=== PATIENT | female | born 2000 | race Caucasian/White ===

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

== ENCOUNTER 2019-04-23 19:28 | Emergency (ER) | payer MEDICAID, OTHER ==
[~2019-04-23] VITALS: Ht 162.6 cm; Wt 61.2 kg
[~2019-04-23 19:28] MED LIST changes: +CIPR-225 PO; +HYOS0.1283 SL; +PHEN-640 PO
[2019-04-23 19:36] VITALS: BP 143/84
[2019-04-23] MEDS ORDERED: RX-TRIMETH/SULFA. 160-800 MG (BACTRIM DS) TAB PPK#2 PO STA (20:17)
[2019-04-23] MEDS ORDERED: TETANUS,DIPTH,PERTUSS P/F (BOOSTRIX) 0.5 ML VIAL IM ONE ×2 (20:19→20:30)
[2019-04-23] MEDS ORDERED: SULF-222 PO (20:20)
--- NOTE | 2019-04-23 20:21 | ED Integumentary General ---
General Chief Complaint: Bite-Animal/Human/Insect Stated Complaint: BITE ON HIP Nursing Triage Note: Patient reports 'bite' on R hip. states she noticed it yesterday and it has gotten bigger Source: patient Exam Limitations: no limitations History of Present Illness Date Seen by Provider: Apr 23, 2019 Time Seen by Provider: 20:06 Initial Comments 19-year-old female patient presents to the emergency department complains of a insect bite to the right hip. Patient states [place], but does not recall anything biting or stinging her. Patient reportedly noticed the bite joie yesterday, but states the redness has gotten bigger today. Patient states she was instructed by her mother to come to the emergency department for evaluation. Timing/Duration: yesterday, getting worse Location: extremities (right hip) Possible Cause: insect bite (possible insect bite) Modifying Factors: worse with other (denies dlkr-fhk-wurhigu medications or home remedies.) Allergies and Home Medications Allergies Coded Allergies: amoxicillin (Verified Allergy, Intermediate, RASH, 03/03/17) Rash and Dyspnea clavulanic acid (Verified Allergy, Intermediate, RASH, 03/03/17) Rash and Dyspnea Home Medications Amoxicillin/Potassium Clav 1 Each Tablet, 1 EACH PO BID, (Reported) Ciprofloxacin HCl 500 Mg Tablet, 500 MG PO BID Prescribed by: ERASMO MONROE on 04/02/17400 Hyoscyamine Sulfate 0.125 Mg Tab.subl, 0.125 MG SL Q4H PRN for CRAMPS Prescribed by: ERASMO MONROE on 04/02/17400 Phenazopyridine HCl 200 Mg Tablet, 1 TAB PO TID PRN for PAIN-MILD TO MODERATE Prescribed by: ERASMO MONROE on 04/02/17400 Prednisone 20 Mg Tab, 20 MG PO DAILY Prescribed by: ERASMO OMNROE on 03/03/17 050 Sulfamethoxazole/Trimethoprim 1 Each Tablet, 1 EACH PO BID Prescribed by: ARACELI VOGEL on 04/23/192019 Patient Home Medication List Home Medication List Reviewed: Yes Review of Systems Review of Systems Constitutional: No chills, No fever, No malaise EENTM: no symptoms reported Respiratory: no symptoms reported Cardiovascular: no symptoms reported Gastrointestinal: no symptoms reported Musculoskeletal: no symptoms reported Skin: see HPI Psychiatric/Neurological: No Symptoms Reported All Other Systems Reviewed Negative Unless Noted: Yes (Negative excepted noted.) Past Lraewne-Sjfozb-Xkofgt Hx Past Med/Social Hx: Reviewed Nursing Past Med/Soc Hx Patient Social History Alcohol Use: Denies Use Recreational Drug Use: No Type Used: Electronic/Vapor 2nd Hand Smoke Exposure: No Recent Foreign Travel: No Contact w/Someone Who Travel: No Recent Infectious Disease Expo: No Recent Hopitalizations: No Physical Abuse: No Sexual Abuse: No Mistreated: No Fear: No Immunizations Up To Date Tetanus Booster (TDap): More than 5yrs Seasonal Allergies Seasonal Allergies: No Past Medical History Surgeries: Yes Adenoidectomy, Tonsillectomy Respiratory: No Cardiac: No Neurological: No Genitourinary: No Gastrointestinal: No Musculoskeletal: No Endocrine: No HEENT: No Cancer: No Psychosocial: Yes Depression Integumentary: No Blood Disorders: No Family Medical History Reviewed Nursing Family Hx No Pertinent Family Hx Physical Exam Vital Signs Vital Signs - First Documented 04/23/19 19:36 Temp 98.5 Pulse 99 Resp 18 B/P (MAP) 143/84 (103) Pulse Ox 98 Capillary Refill : Less Than 3 Seconds General Appearance: WD/WN, no apparent distress Cardiovascular: normal peripheral pulses, regular rate, rhythm, no edema, no gallop, no murmur Respiratory: lungs clear, normal breath sounds, no respiratory distress, no accessory muscle use Extremities: normal range of motion, non-tender, no pedal edema, normal capillary refill, other (3x4 cm area of erythema with a centrual puncture site and warmth noted to the rt hip. nontender. no drainage noted.) Skin: normal color, warm/dry, other (3x4 cm area of erythema with a centrual puncture site and warmth noted to the rt hip. nontender. no drainage noted.) Skin Problem Location: lower extremities (right hip) Skin Problem Character: erythema, warm, other (3x4 cm area of erythema with a centrual puncture site and warmth noted to the rt hip. nontender. no drainage noted.) Progress/Results/Core Measures Results/Orders My Orders Orders - ARACELI VOGEL Rx-Trimeth/Sulfameth Ds Tab (Rx-Bactrim/ (04/23/19 20:17) Tetanus/Diphtheria Inj (Adult) (Tenivac (04/23/19 20:30) Dipht,Pertuss(Acell),Tet Adult (Boostrix (04/23/19 20:30) Dipht,Pertuss(Acell),Tet Adult (Boostrix (04/23/19 20:19) Medications Given in ED Current Medications Medications Dose Ordered Sig/Marilou Route Start Time Stop Time Status Last Admin Dose Admin Diphtheria/ Tetanus/Acell Pertussis 0.5 ml ONCE ONCE IM 04/23/19 20:30 04/23/19 20:30 DC 04/23/19 20:28 0.5 ML Vital Signs/I&O 04/23/19 19:36 Temp 98.5 Pulse 99 Resp 18 B/P (MAP) 143/84 (103) Pulse Ox 98 Blood Pressure Mean: 103 Departure Communication (Admissions) Patient seen and evaluated. Patient given take-home pack of Bactrim DS and also given a tetanus booster in the emergency department. Plan for discharge to home. Impression Primary Impression: Cellulitis of hip, right Additional Impression: Insect bite Qualified Codes: S70.261A - Insect bite (nonvenomous), right hip, initial encounter; W57.XXXA - Bitten or stung by nonvenomous insect and other nonvenomous arthropods, initial encounter Disposition: HOME, SELF-CARE Condition: Improved Departure-Patient Inst. Decision time for Depature: 20:19 Referrals: [facility] (PCP/Family) Primary Care Physician Patient Instructions: Cellulitis (Skin Infection), Adult (DC), Insect Bites and Stings (DC) Add. Discharge Instructions: All discharge instructions reviewed with patient and/or family. Voiced understanding. Medications as instructed. Tylenol and ibuprofen ewsu-zxa-[id number] as directed for pain. Pkwk-iay-lohftot Claritin or Garima as needed for itching or swelling. Follow-up with your primary care provider if needed. Return to the emergency department for worsened symptoms or any other concerns. Scripts Sulfamethoxazole/Trimethoprim (Sulfamethoxazole-Tmp Ds Tablet) 1 Each Tablet 1 EACH PO BID, #14 TAB 0 Refills Prov: ARACELI VOGEL 04/23/19 ARACELI VOGEL Apr 23, 2019 20:21
[2019-04-23] MEDS ORDERED: TETANUS & DIPHTHERIA TOX,ADULT 0.5 ML (TENIVAC) IM ONE (20:30)
== END 2019-04-23 20:30 | disposition home or self-care (01) ==
LOC: EDUNIT# 19:28 → ER 19:30
DX: S70.261A Insect bite (nonvenomous), right hip, initial encounter (principal); L03.115 Cellulitis of right lower limb; F32.9 Major depressive disorder, single episode, unspecified; Z90.89 Acquired absence of other organs; Z88.1 Allergy status to other antibiotic agents; Z88.8 Allergy status to other drugs, medicaments and biological substances; W57.XXXA Bitten or stung by nonvenomous insect and other nonvenomous arthropods, initial encounter
CPT/HCPCS: 90715; 99283

== ENCOUNTER 2020-01-04 18:14 | Emergency (ER) | payer MEDICAID, OTHER ==
[~2020-01-04] VITALS: Ht 160 cm; Wt 253.0 kg
[~2020-01-04 18:14] MED LIST changes: +SULF-222 PO
[2020-01-04] MEDS ORDERED: CYCLOBENZAPRINE 10 MG (FLEXERIL) TAB PO STA (20:46)
[2020-01-04] MEDS ORDERED: KETOROLAC 60 MG/2 ML VIAL IM STA (20:46)
[2020-01-04] MEDS ORDERED: CYCL10TA9 PO (20:49)
--- NOTE | 2020-01-04 20:50 | ED Neck-Back Pain/Injury ---
General Chief Complaint: General Problems/Pain Stated Complaint: RIB PAIN Nursing Triage Note: Pt amb to triage with c/o R rib discomfort, R shoulder discomfort, nausea, vomiting, fever, chills, et night sweats. Pt reports onset of symptoms to be approx x2 days ago. Pt reports increase in rib et shoulder pain when taking a deep breath. Pt denies injury, CP, or SOA. A&OX4. Nursing Sepsis Screen: No Definite Risk History of Present Illness Date Seen by Provider: Jan 04, 2020 Time Seen by Provider: 20:15 Initial Comments 19-year-old female presents for right rib, neck and shoulder pain. She states that she had an upper respiratory infection approximately 2 weeks ago with coughing consistently. She denies any fevers at this time but does report sweating at night. She's had no weight gain or weight loss. She does not have a primary care provider. She did obtain a flu vaccine this year. She denies an injury to her neck, ribs or shoulder. Location: C-Spine, Other (Right ribs) Timing/Duration: 1 Week, Intermittent Severity: Mild Pain/Injury Location: Neck Associated Symptoms: muscle spasms Allergies and Home Medications Allergies Coded Allergies: amoxicillin (Verified Allergy, Intermediate, RASH, 03/03/17) Rash and Dyspnea clavulanic acid (Verified Allergy, Intermediate, RASH, 03/03/17) Rash and Dyspnea Home Medications Amoxicillin/Potassium Clav 1 Each Tablet, 1 EACH PO BID, (Reported) Ciprofloxacin HCl 500 Mg Tablet, 500 MG PO BID Prescribed by: ERASMO MONROE on 04/02/17400 Cyclobenzaprine HCl 10 Mg Tablet, 10 MG PO Q8H PRN for SPASMS Prescribed by: WESTON CHOWDHURY on 01/04/202048 Hyoscyamine Sulfate 0.125 Mg Tab.subl, 0.125 MG SL Q4H PRN for CRAMPS Prescribed by: ERASMO MONROE on 04/02/17400 Phenazopyridine HCl 200 Mg Tablet, 1 TAB PO TID PRN for PAIN-MILD TO MODERATE Prescribed by: ERASMO MONROE on 04/02/17 040 Prednisone 20 Mg Tab, 20 MG PO DAILY Prescribed by: ERASMO MONROE on 03/03/17 0501 Sulfamethoxazole/Trimethoprim 1 Each Tablet, 1 EACH PO BID Prescribed by: ARACELI VOGEL on 04/23/192019 Patient Home Medication List Home Medication List Reviewed: Yes Review of Systems Constitutional: no symptoms reported, see HPI Musculoskeletal: see HPI, joint pain (right shoulder), muscle pain (right trapezius), neck pain All Other Systems Reviewed Negative Unless Noted: Yes Past Tmgcqyg-Aqaiup-Ibdvzz Hx Past Med/Social Hx: Reviewed Nursing Past Med/Soc Hx Patient Social History Alcohol Use: Denies Use Recreational Drug Use: No Smoking Status: Current Everyday Smoker Type Used: Cigarettes, Electronic/Vapor 2nd Hand Smoke Exposure: No Recent Foreign Travel: No Contact w/Someone Who Travel: No Recent Infectious Disease Expo: No Recent Hopitalizations: No Physical Abuse: No Sexual Abuse: No Immunizations Up To Date Tetanus Booster (TDap): More than 5yrs Seasonal Allergies Seasonal Allergies: No Past Medical History Surgeries: Yes Adenoidectomy, Tonsillectomy Respiratory: No Cardiac: No Neurological: No Genitourinary: No Gastrointestinal: No Musculoskeletal: No Endocrine: No HEENT: No Cancer: No Psychosocial: Yes Depression Integumentary: No Blood Disorders: No Family Medical History No Pertinent Family Hx Physical Exam Vital Signs Vital Signs - First Documented 01/04/20 18:33 Temp 36.9 Pulse 85 Resp 18 B/P (MAP) 118/77 (91) Pulse Ox 99 O2 Delivery Room Air Capillary Refill : Less Than 3 Seconds Height, Weight, BMI Height: 5'4.00" Weight: 135lbs. oz. 61.225868pw; 98.00 BMI Method:Stated General Appearance: No Apparent Distress, WD/WN HEENT: PERRL/EOMI, TMs Normal, Normal ENT Inspection, Pharynx Normal Neck: Full Range of Motion, Normal Inspection, Tender Lateral (right trapezius) Cardiovascular: Regular Rate, Rhythm, No Edema, No Murmur, Normal Peripheral Pulses Respiratory: Lungs Clear, Normal Breath Sounds, Other (tenderness along the lateral lower ribs, increased pain with coughing or deep inspiration) Gastrointestinal: Normal Bowel Sounds, Non Tender, Soft Extremity: Normal Capillary Refill, Normal Inspection, Normal Range of Motion Neurologic/Psychiatric: Alert, Oriented x3, No Motor/Sensory Deficits, Normal Mood/Affect Skin: Normal Color, Warm/Dry Progress/Results/Core Measures Results/Orders Micro Results Microbiology 01/04/20 Influenza Types A,B Antigen (CHRISSIE) - Final, Complete My Orders Orders - TRENTONWESTON GARSIA Influenza A And B Antigens (01/04/20 19:52) Ketorolac Injection (Toradol Injection) (01/04/20 20:46) Cyclobenzaprine Tablet (Flexeril Tablet) (01/04/20 20:46) Vital Signs/I&O 01/04/20 01/04/20 18:33 21:01 Temp 36.9 36.9 Pulse 85 85 Resp 18 18 B/P (MAP) 118/77 (91) 118/77 (91) Pulse Ox 99 99 O2 Delivery Room Air Blood Pressure Mean: 91 Progress Progress Note : Time: 20:15 Progress Note Patient seen and evaluated, will obtain influenza swab and reevaluate. Will give Toradol for pain and Flexeril for muscle spasms. 2100 patient reports some improvement in her symptoms. Discharge instructions and return precautions reviewed with her. Departure Impression Primary Impression: Costochondritis, acute Additional Impression: Trapezius muscle strain Qualified Codes: S46.811A - Strain of other muscles, fascia and tendons at shoulder and upper arm level, right arm, initial encounter Disposition: HOME, SELF-CARE Condition: Improved Departure-Patient Inst. Decision time for Depature: 20:45 Referrals: [facility] ([facility]) Primary Care Physician Patient Instructions: Cervical Muscle Strain (DC), Costochondritis (DC) Add. Discharge Instructions: Use warm, moist compression to right neck and ribs. Take ibuprofen 600 mg alternating with Tylenol 650 mg every 4 hours for pain. Use the Flexeril prescription as directed. Follow-up with a primary care provider if symptoms are not improving or worsen. Return to the emergency department for new, urgent health care needs. All discharge instructions reviewed with patient and/or family. Voiced understanding. Scripts Cyclobenzaprine HCl (Cyclobenzaprine HCl) 10 Mg Tablet 10 MG PO Q8H PRN for SPASMS, #15 TAB 0 Refills Prov: TRENTONWESTON GARSIA 01/04/20 TRENTONWESTON GARSIA Jan 04, 2020 20:49
[2020-01-04 21:01] VITALS: BP 118/77
--- OUTSIDE RECORDS SUMMARY | 2020-01-06 17:38 | XMS REPORT ---
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 Name Role Phone CHAPPAQUA, [facility] Unavailable SUSSY MAYERS Unavailable KEVIN CARMICHAEL, ERASMO Donald Unavailable Unavailable [facility] Unavailable PCP, NONE Unavailable Unavailable KEVIN CARMICHAEL, ERASMO Donald Unavailable Unavailable ERIN GRIFFIN DO Unavailable Unavailable ARACELI CUADRA Unavailable Unavailable Unavailable Unavailable [facility] PCP Allergies Normalized Allergy Reported Date of Reaction(s) Care Provider Facility Allergy Type classification allergen Allergy Onset Drug Allergy Clavulanate Clavulanate 03-03-2017 - [place] [address] (1 source.) [facility] (07418) NEGATED no information clavulanic 03-03-2017 - RASH ERASMO Not Available Drug Allergy acid KEVIN (83006) (1 source.) MD SUTTON (20 Unclassified clavulanic 03-03-2017 - RASH ERASMO Not Available sources.) evie BROWN (01617) Drug Allergy penicillin v penicillin v 06-21-2018 - anaphylaxis [facility] (1 source.) Translations: [address] [facility] [ Penicillin V of [place] Potassium] [place] ([address]) Medications Current Medications Medication Ingredient Drug Dose Dates Status Sig Sig Care Class(es) (Normalized) (Original) Provid er cyclobenzap cyclobenzap Muscle 01-04-20 Active no Cyclobenza pr no rine rine Relaxant 20 information ine Hcl name hydrochlori Active 10 (no de 10 mg ORAL Every phone) oral tablet 8HRS as (1 source.) needed for Spasms January 04, 2020 8:49pm sertraline sertraline Serotonin 50 mg 06-21-20 Active no Zo loft 50 mg no 50 mg oral Translation Reuptake 18 information Orally Onc e name tablet (1 s: [ Zoloft Inhibitor a day 1 (no source.) 50 mg] tablet 24h phone) May, 30 day(s) Active no Sulfamethox Dihydrofola 04-23-20 Active no Sulfametho xa no information azole / te 19 information zole/Trimeth name (1 source.) Trimethopri Reductase oprim Active (no m Inhibitor 1 ORAL Twice phone) Antibacteri A Day 14 April 23, Sulfonamide 2018 8:20pm Antimicrobi al Completed/Discontinued Medications Medication Ingredient Drug Dose Dates Status Sig Sig Care Class(es) (Normalized) (Original) Provid er no Flintstones no no no Flintstones no information Complete information informat information Complete name (1 source.) ion Active (no phone) no Potassium no 20 mEq 01-25-20 no no no no information Chloride information 19 - informat information inf ormation name (1 source.) 01-25-20 ion (no 19 phone) Problems Active Problems Problem Normalized Date of Normalized Normalized Provider Fac ility Classification Problem(s) Problem Problem Problem Sta tus Onset/Resoluti Duration on Other female Abnormal Chronic Active PAULINA OLIVEIRA Hospit al genital uterine and [facility] of disorders (1 vaginal [place] source.) [facility], [facility] (53362) unspecified Unclassified Cellulitis of no information Active [facility] [address] (2 sources.) right hip [facility] (57609) Other bone Costal Episodic Active [facility] [address] [facility] disease and chondritis [facility] l deformities (37809) (1 source.) Other diseases Disorder of Episodic Active [facility] V ia of kidney and kidney and Radha BROWN ureters (2 ureterMD Hospital - sources.) unspecified [place] ([address]) Unclassified Encounter for Episodic Active SUSSY Commu nity (2 sources.) [place] [address] [facility] Center test, result of [place] unknown [place] ([address]) Translations: [ - Encounter for test, result unknown Z32.00] Anxiety Generalized Chronic Active BOISE Community disorders (6 anxiety [place] [address] [facility] sources.) disorder of [place] Translations: [place] ([address]) [ TOSHA (generalized anxiety disorder), - TOSHA (generalized anxiety disorder) F41.1, - Anxiety state, unspecified F41.1] Other lower Hyperventilati Episodic Active ERASMO Not A vailable respiratory on KEVIN , (97394) disease (6 MD sources.) Unclassified Insect bite no information Active [facility] [address] (2 sources.) [facility] (11059) Mood disorders Mood disorder Chronic Active SUSSY Com munity (7 sources.) Translations: [address] [ Unspecified of [place] mood [place] ([address]) [affective] disorder, - Unspecified mood [affective] disorder F39, MAJOR DEPRESSIVE DISORDER, SINGLE EPISOD] Other Pruritus, Episodic Active ERASMO Not Availabl e inflammatory unspecified BRUJESSICA , (59060) condition of MD skin (11 sources.) Menstrual Unspecified Chronic Active PAULINA OLIVEIRA Hospit al disorders (1 disorders of [facility] of source.) menstruation [place] and [facility] (61598) abnormal bleeding from female genital tract Other injuries Unspecified Episodic Active ERASMO Not A vailable and conditions injury of left KEVIN , (66433) due to ankle, initial MD external encounter causes (9 sources.) Past or Other Problems Problem Normalized Date of Normalized Normalized Provider Fac ility Classification Problem(s) Problem Problem Problem Sta tus Onset/Resoluti Duration on Superficial Abrasion, Episodic Completed ERASMO Not Availa ble injury; right knee, BRUJESSICA , (66570) contusion (23 initial MD sources.) encounter Translations: [ ABRASION, LEFT FOOT, INITIAL ENCOUNTER, ABRASION, LEFT FOOT, INITIAL ENCOUNTER, INSECT BITE (NONVENOMOUS), RIGHT HIP, IN] Residual Acquired Episodic Completed ARACELI [facility] Via codes; absence of TEETEE VOGEL unclassified other organs Hospital - (4 sources.) [place] ([address]) External cause Activity, no information no information ERASMO Not Available codes: running KEVIN , (14836) Unspecified Translations: (17 sources.) [ OTHER EXTERNAL CAUSE STATUS, OTHER EXTERNAL CAUSE STATUS] Adverse Adverse effect no information no information ERASMO Not Available effects of of KEVIN , (44359) medical drugs MD marciano (6 sources.) initial encounter Allergic Allergy status Episodic Completed ARACELI [facility] Via reactions (8 to other TEETEE VOGEL sources.) antibiotic Hospital - agents status [place] Translations: (98405) [ ALLERGY STATUS TO OTH DRUG/MEDS/BIOL SUB] External cause Bitten or no information no information ARACELI [facility] Via codes: stung by TEETEE VOGEL Natural/enviro nonvenomous Hospital - [facility] (3 insect and [place] sources.) other (54697) nonvenomous arthropods, initial encounter External cause Bitten or Episodic Completed ARACELI [facility] Via codes: stung by TEETEE VOGEL Natural/enviro nonvenomous [facility] (1 insect and [place] source.) other (84752) nonvenomous arthropods, initial encounter Skin and Cellulitis of Episodic Completed ARACELI [facility] Via subcutaneous right lower TEETEE VOGEL tissue limb Hospital - infections (4 [place] sources.) (67446) External cause College as the no information no information CYRUS FITZPATRICK Not Available codes: Place place of [facility] , ([address]41) of occurrence occurrence of MD (9 sources.) the external cause External cause Fall on same no information no information JOSHU A Not Available codes: Fall (9 level from [facility] , (28642) sources.) slipping, MD tripping and stumbling without subsequent striking against object, initial encounter Mood disorders Major no information no information ARACELI [facility] Via (3 sources.) depressive TEETEE VOGEL disorder, Hospital - single [place] episode, (72488) unspecified Procedures Procedure Normalized Procedure Procedure Result Performer Facility Date 06-02-2018 Psychiatric diagnostic no information no name (no p booker) [facility] (56599) Immunizations Normalized Immunization Date Notes Care Provider Facili ty Immunization tetanus toxoid, 04-23-2019 no information no name [facility] toxoid, and (31249) acellular pertussis vaccine, adsorbed tetanus toxoid, 04-23-2019 no information [facility] [address] [address] [facility] diphtheria [facility] toxoid, and (92855) acellular pertussis vaccine, adsorbed Results Test Name Value Interpretation Reference Range Date Time Fa cility (Normalized) (Normalized) (Medline Reference) No panel information on 2019-11-30 Control no information (no code) [facility] (68450) Exp date 2022-06-04 (no code) [facility] (37833) Lot # [id number] (no code) [facility] (61959) No panel information on 2019-01-24 Albumin BCG dye 4.4 (no code) 01-24-2019 Hospital [Mass/Vol] 23: [facility] (95148) ALP [Catalytic 60 U/L (no code) 44 - 147 U/L 01-24-2019 Hosp ital activity/Vol] 23:0 [facility] (64709) ALT [Catalytic 15 U/L (no code) 4 - 40 U/L 01-24-2019 Hospit al activity/Vol] 23:0 [facility] (52978) Anion gap 13 mmol/L (no code) 3 - 11 mmol/L 01-24-2019 Hospital [Moles/Vol] 23:040 [facility] (60720) AST [Catalytic 17 U/L (no code) 10 - 34 U/L 01-24-2019 Hospi vahid activity/Vol] 23:11-0400 [facility] (42767) Basophils (Bld) 0.0 10*3/uL (no code) 0 - 0.3 10*3/uL 01-24-2019 Hospital [#/Vol] 23:11040 [facility] (69778) Basophils/100 0.40 % (no code) 0.5 - 1 % 01-24-2019 Hospital WBC (Bld) 23: [facility] (58353) Beta HCG no information (no code) 01-24-2019 Hospital ( test) 23: [facility] (10785) Bilirubin 0.5 mg/dL (no code) 0.1 - 1.2 mg/dL 01-24-2019 Hospit al [Mass/Vol] 23: [facility] (05111) Calcium 9.6 mg/dL (no code) 8.5 - 10.2 mg/dL 01-24-2019 Hospi vahid [Mass/Vol] 23: [facility] () Chloride 108 mmol/L (no code) 95 - 106 mmol/L 01-24-2019 Hospi vahid [Moles/Vol] 23: [facility] () Creatinine 0.82 mg/dL (no code) 01-24-2019 Hospital [Mass/Vol] 23: [facility] () Eosinophils 0.1 10*3/uL (no code) 0.05 - 0.5 01-24-2019 Hospita l (Bld) [#/Vol] 10*3/uL 23: [facility] () Eosinophils/100 1.5 % (no code) 1 - 4 % 01-24-2019 Hospit al WBC (Bld) 23: [facility] () Erythrocyte 12.8 % (no code) 11.6 - 14.6 % 01-24-2019 Hospit al distribution 23: [facility] of width (RBC) [facility] [Ratio] (06757) GFR/1.73 sq 88 (no code) 90 - 120 01-24-2019 Hospital M.predicted MDRD mL/min/{1.73_m2} mL/min/{1.73_m2} 23: [facility] of (S/P/Bld) [Vol [facility] rate/Area] (27430) Globulin (S) 2.8 g/dL (no code) 2 - 3.5 g/dL 01-24-2019 Hospit al [Mass/Vol] 23: [facility] () Glucose 92 mg/dL (no code) 60 - 125 mg/dL 01-24-2019 Hospita l [Mass/Vol] 23: [facility] (33719) HCO3 (P) 21 (L) 01-24-2019 Hospital [Moles/Vol] 23: [facility] () Hematocrit (Bld) 38.1 % (no code) 36.1 - 50.3 % 01-24-2019 H ospital [Volume 23:0 [facility] of fraction] [facility] (82624) Hemoglobin (Bld) 13.0 g/dL (no code) 12.1 - 17.2 g/dL 01-24-2019 Hospital [Mass/Vol] 23:0400 [facility] (04090) Lymphocytes 3.17 10*3/uL (no code) 0.9 - 2.9 01-24-2019 Hospita l (Bld) [#/Vol] 10*3/uL 23:040 [facility] (06329) Lymphocytes/100 33.8 % (no code) 20 - 40 % 01-24-2019 Hospit al WBC (Bld) 23: [facility] (53409) MCH (RBC) 30.2 pg (no code) 27 - 31 pg 01-24-2019 Hospital [Entitic mass] 23: [facility] (84170) MCHC (RBC) 34.1 g/dL (no code) 32 - 36 g/dL 01-24-2019 Hospital [Mass/Vol] 23:040 [facility] (11687) MCV (RBC) 88.4 fL (no code) 80 - 100 fL 01-24-2019 Hospital [Entitic vol] 23:040 [facility] (61776) Monocytes (Bld) 0.8 10*3/uL (no code) 0.3 - 0.9 01-24-2019 Hosp ital [#/Vol] 10*3/uL 23:040 [facility] (53833) Monocytes/100 8.4 % (no code) 2 - 8 % 01-24-2019 Hospital WBC (Bld) 23: [facility] (08750) Neutrophils 5.23 10*3/uL (no code) 1.7 - 7 10*3/uL 01-24-2019 H ospital (Bld) [#/Vol] 23: [facility] (81319) Neutrophils/100 55.9 % (no code) 40 - 60 % 01-24-2019 Hospit al WBC (Bld) 23: [facility] (44792) Osmolality Calc 285 (no code) 01-24-2019 Hospital [Osmolality] 23: [facility] (54809) Platelet mean 11.1 fL (H) 7.2 - 11.7 fL 01-24-2019 Hosp ital volume (Bld) 23: [facility] of [Entitic vol] [facility] (34946) Platelets (Bld) 285 10*3/uL (no code) 150 - 450 01-24-2019 Hosp ital [#/Vol] 10*3/uL 23: [facility] (70121) Potassium 3.1 mmol/L (L) 3.7 - 5.2 mmol/L 01-24-2019 Hosp ital [Moles/Vol] 23: [facility] (09927) Protein 7.2 g/dL (no code) 6.4 - 8.3 g/dL 01-24-2019 Hospita l [Mass/Vol] 23:040 [facility] (44469) RBC (Bld) 4.31 10*6/uL (no code) 4.2 - 6.1 01-24-2019 Hospital [#/Vol] 10*6/uL 23:040 [facility] (77116) Sodium 139 mmol/L (no code) 135 - 145 mmol/L 01-24-2019 Hosp ital [Moles/Vol] 23:0400 [facility] (98428) Urea nitrogen 8 mg/dL (no code) 7 - 20 mg/dL 01-24-2019 Hospi vahid [Mass/Vol] 23:040 [facility] (75396) WBC (Bld) 9.37 10*3/uL (no code) 3.5 - 10.5 01-24-2019 Hospital [#/Vol] 10*3/uL 23: [facility] (24878) No panel information on 2017-05-22 Beta HCG no information (no code) 05-22-2017 Not Availab le ( test) 07:040 (35012) Ql Vital Signs Vital Sign Value Interpretation Reference Date Time Care Prov ider Facility (Normalized) (Normalized) Range BMI (Body Mass 27.79 kg/m2 (no code) 15 - 25 kg/m2 06-21-2018 UY EN DEREK Community Index) 15:40-0400 97763 [facility] (48957) Height 165.1 cm (no code) cm 06-21-2018 PEREZ DEREK Commu nity 15:40-0400 17303 [facility] (14213) Weight 75.75 kg (no code) kg 06-21-2018 EPREZ DEREK Commu nity 15:40-0400 12141 [facility] (19121) Interventions No Information Plan of Treatment Normalized Care Care Detail Care Activity Date Care Provider F acility Activity Patient Education no information no information [facility] [address] [facility] (54342) Patient referral no information no information [facility] [address] [facility] (26921) Goals Patient Goal Desired Goal no information no information Social History Normalized Code Original Code Date Value Tobacco smoking status Tobacco smoking status no information Smokes tobacco daily NHIS NHIS (finding) no information no information 01-04-2020 Denies Use no information no information 01-04-2020 No no information no information 01-04-2020 Denies no information no information 01-04-2020 Current Everyda y Smoker no information no information 01-04-2020 Cigarettes;Elec tronic/Vap or Sex Assigned At Sex Assigned At no information F emale Functional Status The data below is from unstructured sourcesNo functional status information available.No functional status information available.No functional status information available.No functional status information available.No functional status information available.No Functional Status info rmation availableNo Functional Status information available Mental Status The data below is from unstructured sourcesNo Mental Status Information Available Encounters Encounter Normalized Encounter Encounter Diagnosis Care Provi nivia Organization Date Type 07-20-2018 (-INTAKE) Behavioral no information SUSSY POLANCO ON (no [facility] Health Intake phone) (no phone) 06-02-2018 (-INTAKE) Behavioral Unspecified mood SUSSY CALHOUN RSON (no [facility] - Health Intake [affective] disorder phone) (no phone) 06-02-2018 - 06-02-2018 07-12-2018 (PSY-FU-20) Psychiatry no information PEREZ DEREK (no phone) [facility] F/U 20 min (no phone) 06-21-2018 (PSY-INTAKE) Generalized anxiety PEREZ DEREK (no phon e) [facility] - Psychiatry Intake disorder (no phone) 06-21-2018 - 06-21-2018 05-21-2017 Consultation for Encounter for JAMES PANCHAL (no phone ) [facility] - laboratory medicine test, result ( no phone) 05-21-2017 unknown - 05-21-2017 01-04-2020 Emergency department no information (no phone) As [facility] - patient [facility] (no phone) 01-05-2020 04-23-2019 Emergency department no information no name (no patricia ne) no organization name - patient visit (no phone) 04-23-2019 04-23-2019 Emergency department no information no name (no patricia ne) no organization name - patient visit (no phone) 04-23-2019 06-02-2018 Patient encounter no information no name (no phone) no organization name (no phone) 11-30-2019 Patient encounter no information (no phone) [facility] (no phone) 10-28-2019 Patient encounter no information no name (no phone) no organization name procedure (no phone) 09-06-2019 Patient encounter no information no name (no phone) no organization name procedure (no phone) 04-23-2019 Patient encounter no information no name (no phone) no organization name procedure (no phone) 03-13-2019 Patient encounter no information no name (no phone) no organization name procedure (no phone) 01-24-2019 Patient encounter no information no name (no phone) no organization name - procedure (no phone) 01-24-2019 02-20-2017 Patient encounter no information no name (no phone) no organization name procedure (no phone) Patient encounter no information no name (no phone) no organ ization name procedure (no phone) 05-24-2017 Telephone encounter no information JAMSE PANCHAL (no p booker) [facility] - (no phone) 05-24-2017 - 05-24-2017 Medical Equipment The data below is from unstructured sourcesNo Medical Equipment Information available Payers Normalized Payer Value Unknown no information [id number]) Evaluation note Note Type Note Facility Evaluation No Assessments Information Available A scension note Via [facility] ([id number]) Advance Directives Directive Response Recor ded Date/Time Advance Directives No 6:00am Resuscitation Status Full Code 02/20/17 6:00am Directive Response Recor ded Date/Time Advance Directives No 1:56am Organ Donor Yes 04/02/17 1:56am Resuscitation Status Full Code 04/02/17 1:56am Advance Directive Response Recorded Date/Time Advance Directives No Nelia [facility] 2019 6:33pm Organ Donor Yes January [id number] 6:33pm Resuscitation Status Full Code January 04, 2020 6:33pm Discharge Instructions No hospital discharge instruction information available.No hospital discharge instruction information available.No hospital discharge instruction information available. Chief Complaint and Reason for Visit Chief Complaint General Problems/Michael n Reason for Visit [id number] Additional Source Comments This clinical document has been generated using [employer] software that has been certified by the Office of the National Coordinator for Health Information Technology (ONC 15.99.04.3023.Diam.31.00.0.719538) and the National Committee for Stone [employer] Con[employer]her (NCQA, as an eMeasure certified technology). FOR RECORDS PERTAINING TO PATIENTS WHO ARE OR HAVE BEEN ENROLLED IN A CHEMICAL D EPENDENCY/SUBSTANCE ABUSE PROGRAM, SOME INFORMATION MAY BE OMITTED. This clinica l summary was aggregated from multiple sources. Caution should be exercised in using it in the provision of clinical care. This summary normalizes information from multiple sources, and as a consequence, information in this document may ma terially change the coding, format and clinical context of patient data. In caroline tion, data may be omitted in some cases. CLINICAL DECISIONS SHOULD BE BASED ON T HE PRIMARY CLINICAL RECORDS. [employer] provides no warranty or guara ntee of the accuracy or completeness of information in this document.The followi ng information is based on time limited clinical information UNRECOGNIZED CONTENT PROVIDED BELOW FOR UNRECOGNIZED SECTION REASON FOR VISIT BH intakeBH intake JjournotRN UNRECOGNIZED CONTENT PROVIDED BELOW FOR UNRECOGNIZED SECTION MEDICAL (GENERAL) HISTORY Type Description Date Medical History bi-polar Medical History Depression/anxiety Surgical History Tonsilectomy 2018
--- OUTSIDE RECORDS SUMMARY | 2020-01-06 17:39 | XMS REPORT ---
Author Author Mary PANCHAL Organization [facility] Address [address] [place] [address] Care Team Providers Care Home Energy Consultant Name Role Phone JAMES PANCHAL Unavailable PROBLEMS Unknown Problems ALLERGIES No Information ENCOUNTERS Encounter Location Date Diagnosis [facility] [address] [facility] [id number] [address] [place] [id number] Apr, [facility] [address] [facility] [id number] [address] [place] [id number] Apr, Encounter for test , result unknown Z32.00 IMMUNIZATIONS No Known Immunizations SOCIAL HISTORY Never Assessed REASON FOR VISIT lab results PLAN OF CARE VITAL SIGNS MEDICATIONS Unknown Medications RESULTS No Results PROCEDURES No Known procedures INSTRUCTIONS MEDICATIONS ADMINISTERED No Known Medications
--- OUTSIDE RECORDS SUMMARY | 2020-01-06 17:39 | XMS REPORT | Continuity of Care Document ---
Author Organization Unknown Address Unknown Phone Unavailable Allergies Active Description Code Type Severity Reaction Onset Reported/Identified Relationship to Patient Clinical Status Yes PENICILLIN G POTASSIUM UNKNOWN UNKNOWN Yes amoxicillin [id number] Drug Aller gy Moderate RASH 03/03/2017 Yes clavulanic acid [id number] D rug Allergy Moderate RASH 03/03/2017 Yes No Known Drug Allergies [id number] Drug Allergy Unknown N/A 03/03/2017 Medications Medication Packaging Start Date St op Date Route Dosage Sig POTASSIUM CHLORIDE TAB 20 MEQ (K-DUR) MEQ 01/24/2019 01/24/2019 ONCE&2252 Problems Date Dx Coded Attending Type Code Diagnosis Diagnosed By 02/20/2017 KEVIN CARMICHAEL, ERASMO Donald Ot S80.211A ABRASION, RIGHT KNEE, INITIAL ENCOUNTER 02/20/2017 ERASMO BROWN MD, Ot S90.812A ABRASION, LEFT FOOT, INITIAL ENCOUNTER 02/20/2017 ERASMO BROWN MD Ot S93.402A SPRAIN OF UNSPECIFIED LIGAMENT OF LEFT A 02/20/2017 ERASMO BROWN MD Ot S99.912A UNSPECIFIED INJURY OF LEFT ANKLE, INITIA 02/20/2017 ERASMO BROWN MD Ot W01.0XXA FALL SAME LEV FROM SLIP/TRIP W/O STRIKE 02/20/2017 KEVIN CARMICHAEL, ERASMO Donald Ot Y92.214 [facility] THE PLACE OF OCCURRENCE OF TH 02/20/2017 ERASMO BROWN MD Ot Y93.02 ACTIVITY, RUNNING 02/20/2017 ERASMO BROWN MD Ot Y99.8 OTHER EXTERNAL CAUSE STATUS 02/26/2017 ERASMO BROWN MD, Ot S80.211A ABRASION, RIGHT KNEE, INITIAL ENCOUNTER 02/26/2017 ERASMO BROWN MD Ot S90.812A ABRASION, LEFT FOOT, INITIAL ENCOUNTER 02/26/2017 ERASMO BROWN MD Ot S93.402A SPRAIN OF UNSPECIFIED LIGAMENT OF LEFT A 02/26/2017 ERASMO BROWN MD, Ot S99.912A UNSPECIFIED INJURY OF LEFT ANKLE, INITIA 02/26/2017 ERASMO BROWN MD, Ot W01.0XXA FALL SAME LEV FROM SLIP/TRIP W/O STRIKE 02/26/2017 ERASMO BROWN MD Ot Y92.214 [facility] THE PLACE OF OCCURRENCE OF TH 02/26/2017 ERASMO BROWN MD, Ot Y93.02 ACTIVITY, RUNNING 02/26/2017 ERASMO BROWN MD Ot Y99.8 OTHER EXTERNAL CAUSE STATUS 03/03/2017 ERASMO BROWN MD, Ot L29.9 PRURITUS, UNSPECIFIED 03/03/2017 ERASMO BROWN MD Ot R06.4 HYPERVENTILATION 03/03/2017 ERASMO BROWN MD Ot T36.0X5A ADVERSE EFFECT OF PENICILLINS, INITIAL E 03/05/2017 ERASMO BROWN MD Ot L29.9 PRURITUS, UNSPECIFIED 03/05/2017 ERASMO BROWN MD Ot R06.4 HYPERVENTILATION 03/05/2017 ERASMO BROWN MD Ot T36.0X5A ADVERSE EFFECT OF PENICILLINS, INITIAL E 03/06/2017 ERASMO BROWN MD Ot L29.9 PRURITUS, UNSPECIFIED 03/06/2017 ERASMO BROWN MD Ot R06.4 HYPERVENTILATION 03/06/2017 ERASMO BROWN MD Ot T36.0X5A ADVERSE EFFECT OF PENICILLINS, INITIAL E 03/30/2017 ERASMO BROWN MD Ot S80.211A ABRASION, RIGHT KNEE, INITIAL ENCOUNTER 03/30/2017 ERASMO BROWN MD Ot S90.812A ABRASION, LEFT FOOT, INITIAL ENCOUNTER 03/30/2017 ERASMO BROWN MD Ot S93.402A SPRAIN OF UNSPECIFIED LIGAMENT OF LEFT A 03/30/2017 ERASMO BROWN MD Ot S99.912A UNSPECIFIED INJURY OF LEFT ANKLE, INITIA 03/30/2017 ERASMO BROWN MD, Ot W01.0XXA FALL SAME LEV FROM SLIP/TRIP W/O STRIKE 03/30/2017 ERASMO BROWN MD, Ot Y92.214 [facility] THE PLACE OF OCCURRENCE OF TH 03/30/2017 ERASMO BROWN MD, Ot Y93.02 ACTIVITY, RUNNING 03/30/2017 ERASMO BROWN MD, Ot Y99.8 OTHER EXTERNAL CAUSE STATUS 04/02/2017 ERASMO BROWN MD, Ot L29.9 PRURITUS, UNSPECIFIED 04/02/2017 ERASMO BROWN MD, Ot R06.4 HYPERVENTILATION 04/02/2017 ERASMO BROWN MD, Ot T36.0X5A ADVERSE EFFECT OF PENICILLINS, INITIAL E 04/02/2017 ERASMO BROWN MD, Ot L29.9 PRURITUS, UNSPECIFIED 04/02/2017 ERASMO BROWN MD Ot R06.4 HYPERVENTILATION 04/02/2017 ERASMO BROWN MD, Ot T36.0X5A ADVERSE EFFECT OF PENICILLINS, INITIAL E 04/02/2017 ERASMO BROWN MD, Ot N28.9 DISORDER OF KIDNEY AND URETER, UNSPECIFI 04/02/2017 ERASMO BROWN MD, Ot N39.0 URINARY TRACT INFECTION, SITE NOT SPECIF 04/02/2017 ERASMO BROWN MD, Ot R31.9 HEMATURIA, UNSPECIFIED 04/02/2017 ERASMO BROWN MD, Ot L29.9 PRURITUS, UNSPECIFIED 04/02/2017 ERASMO BROWN MD Ot R06.4 HYPERVENTILATION 04/02/2017 ERASMO BROWN MD, Ot T36.0X5A ADVERSE EFFECT OF PENICILLINS, INITIAL E 07/29/2017 ERASMO BROWN MD, Ot L29.9 PRURITUS, UNSPECIFIED 07/29/2017 ERASMO BROWN MD Ot R06.4 HYPERVENTILATION 07/29/2017 BRUEGGEMANN MD, ERASMO T Ot T36.0X5A ADVERSE EFFECT OF PENICILLINS, INITIAL E 01/24/2019 Komal Davila W 626.9 UNSPECIFIED DISORDERS OF MENSTRUATION AND OTHER ABNORMAL BLEEDING FROM FEMALE GENITAL TRACT 01/24/2019 Komal Davila W N93.9 ABNORMAL UTERINE AND VAGINAL BLEEDING, UNSPECIFIED 04/23/2019 ARACELI CUADRA Ot F32.9 MAJOR DEPRESSIVE DISORDER, SINGLE EPISOD 04/23/2019 ARACELI CUADRA Ot L03.115 CELLULITIS OF RIGHT LOWER LIMB 04/23/2019 ARACELI CUADRA Ot S70.261A INSECT BITE (NONVENOMOUS), RIGHT HIP, IN 04/23/2019 ARACELI CUADRA Ot W57.XXXA BIT/STUNG BY NONVENOM INSECT OTH NONVE 04/23/2019 ARACELI CUADRA Ot Z88.1 ALLERGY STATUS TO OTHER ANTIBIOTIC AGENT 04/23/2019 ARACELI CUADRA Ot Z88.8 ALLERGY STATUS TO OTH DRUG/MEDS/BIOL SUB 04/23/2019 ARACELI CUADRA Ot Z90.89 ACQUIRED ABSENCE OF OTHER ORGANS 04/26/2019 ARACELI CUADRA Ot F32.9 MAJOR DEPRESSIVE DISORDER, SINGLE EPISOD 04/26/2019 ARACELI CUADRA Ot L03.115 CELLULITIS OF RIGHT LOWER LIMB 04/26/2019 ARACELI CUADRA Ot S70.261A INSECT BITE (NONVENOMOUS), RIGHT HIP, IN 04/26/2019 ARACELI CUADRA Ot W57.XXXA BIT/STUNG BY NONVENOM INSECT OTH NONVE 04/26/2019 ARACELI CUADRA Ot Z88.1 ALLERGY STATUS TO OTHER ANTIBIOTIC AGENT 04/26/2019 ARACELI CUADRA Ot Z88.8 ALLERGY STATUS TO OTH DRUG/MEDS/BIOL SUB 04/26/2019 ARACELI CUADRA Ot Z90.89 ACQUIRED ABSENCE OF OTHER ORGANS Procedures There is no data. Results Test Result Range Complete urinalysis with reflex to cultu re - 03/03/17 04:16 Urine color determination YELLOW NRG Urine clarity determination CLEAR NR G Urine pH measurement by test strip 6 5-9 Specific gravity of urine by test strip 1.010 1.016-1.022 Urine protein assay by test strip, semi-quantitative NEGATIVE NEGATIVE Urine glucose detection by automated test strip NE GATIVE NEGATIVE Erythrocytes detection in urine sediment by light micr oscopy 3+ NEGATIVE Urine ketones detection by automated test strip NE GATIVE NEGATIVE Urine nitrite detection by test strip NEGATIVE NEGATIVE Urine total bilirubin detection by test strip NEGA TIVE NEGATIVE Urine urobilinogen measurement by automated test strip (mass/volume) NORMAL NORMAL Urine leukocyte esterase detection by dipstick 2+ NEGATIVE Automated urine sediment erythrocyte cou nt by microscopy (number/high power field) NONE NRG Automated urine sediment leukocyte count by microscopy (number/high power field) [HPF] NRG Bacteria detection in urine sediment by light microsco py TRACE NRG Squamous epithelial cells detection in u rine sediment by light microscopy 5-10 NRG Crystals detection in urine sediment by light microsco py NONE NRG Casts detection in urine sediment by light microscopy NONE NRG Mucus detection in urine sediment by light microscopy SMALL NRG Complete urinalysis with reflex to culture NO NRG Complete urinalysis with reflex to cultu re - 04/02/17 01:54 Urine color determination RED NRG Urine clarity determination SLIGHTLY CLOUDY NRG Urine pH measurement by test strip 6 5-9 Specific gravity of urine by test strip 1.020 1.016-1.022 Urine protein assay by test strip, semi-quantitative 4+ NEGATIVE Urine glucose detection by automated test strip NE GATIVE NEGATIVE Erythrocytes detection in urine sediment by light micr oscopy 5+ NEGATIVE Urine ketones detection by automated test strip NE GATIVE NEGATIVE Urine nitrite detection by test strip POSITIVE NEGATIVE Urine total bilirubin detection by test strip NEGA TIVE NEGATIVE Urine urobilinogen measurement by automated test strip (mass/volume) NORMAL NORMAL Urine leukocyte esterase detection by dipstick 3+ NEGATIVE Automated urine sediment erythrocyte cou nt by microscopy (number/high power field) > [HPF] NRG Automated urine sediment leukocyte count by microscopy (number/high power field) [HPF] NRG Bacteria detection in urine sediment by light microsco py TRACE NRG Squamous epithelial cells detection in u rine sediment by light microscopy 2-5 NRG Crystals detection in urine sediment by light microsco py NONE NRG Casts detection in urine sediment by light microscopy NONE NRG Mucus detection in urine sediment by light microscopy NEGATIVE NRG Complete urinalysis with reflex to culture YES NRG Bacterial urine culture - 04/02/17 01:54 Bacterial urine culture [id number] NR COLONY COUNT >100,000/ML NR FTX;REPORTABLE SENSITIVITY REPORTED 04/03 09:50 [facility] Bacterial susceptibility panel - 7 01:54 Gentamicin susceptibility test by minimum inhibitory c oncentration <= NRG Trimethoprim/sulfamethoxazole susceptibi lity test by minimum inhibitoryconcentration >= NRG Ampicillin susceptibility test by minimum inhibitory c oncentration <= NRG Tobramycin susceptibility test by minimum inhibitory c oncentration <= NRG Cefazolin susceptibility test by minimum inhibitory co ncentration <= NRG Ceftriaxone susceptibility test by minimum inhibitory concentration <= NRG Ampicillin/sulbactam susceptibility test by minimum inhibitory concentration <= NRG Piperacillin/tazobactam susceptibility t est by minimum inhibitory concentration <= NRG Ciprofloxacin susceptibility test by minimum inhibitor y concentration <= NRG Meropenem susceptibility test by minimum inhibitory co ncentration <= NRG Nitrofurantoin susceptibility test by mi nimum inhibitory concentration <= NRG Aztreonam susceptibility test by minimum inhibitory co ncentration <= NRG Extended spectrum beta lactamase (ESBL) producing bacteria susceptibility test by minimum inhibitory concentration - NRG Complete blood count (CBC) with automate d white blood cell (WBC) differential - 04/02/17 02:34 Blood leukocytes automated count (number/volume) 15.0 10*3/uL 4.3-11.0 Blood erythrocytes automated count (number/volume) 4.19 10*6/uL 4.35-5.85 Venous blood hemoglobin measurement (mass/volume) 12.8 g/dL 11.5-16.0 Blood hematocrit (volume fraction) 37 % 35-52 Automated erythrocyte mean corpuscular volume 89 [ foz_us] 80-99 Automated erythrocyte mean corpuscular h emoglobin (mass per erythrocyte) 31 pg 25-34 Automated erythrocyte mean corpuscular h emoglobin concentration measurement (mass/volume) 34 g/dL 32-36 Automated erythrocyte distribution width ratio 12. 4 % 10.0- 14.5 Automated blood platelet count (count/volume) 285 10*3/uL 130-400 Automated blood platelet mean volume measurement 10.5 [foz_us] 7.4-10.4 Automated blood neutrophils/100 leukocytes 70 % 42-75 Automated blood lymphocytes/100 leukocytes 19 % 12-44 Blood monocytes/100 leukocytes 10 % 0-12 Automated blood eosinophils/100 leukocytes 1 % 0-10 Automated blood basophils/100 leukocytes 0 % 0-10 Blood neutrophils automated count (number/volume) 10.4 10*3 1.8-7.8 Blood lymphocytes automated count (number/volume) 2.9 10*3 1.0-4.0 Blood monocytes automated count (number/volume) 1. 4 10*3 0.0-1.0 Automated eosinophil count 0.2 10*3/uL 0 .0-0.3 Automated blood basophil count (count/volume) 0.1 10*3/uL 0.0-0.1 Serum or plasma choriogonadotropin (preg samara test) detection - 04/02/17 02:34 Serum or plasma choriogonadotropin ( test) de tection NEGATIVE NEGATIVE Blood manual differential performed dete ction - 04/02/17 02:34 Blood monocytes/100 leukocytes 10 % NRG Manual blood segmented neutrophils/100 leukocytes 69 % NRG Blood band neutrophils/100 leukocytes 0 % NRG Manual blood lymphocytes/100 leukocytes 20 % NRG Manual eosinophils/100 leukocytes in nose 0 % NRG Manual blood basophils/100 leukocytes 0 % NRG Blood lymphocytes variant/100 leukocytes 1 % NRG Blood erythrocyte morphology finding identification NORMAL NRG Whole blood basic metabolic panel - 07/11 02:34 Serum or plasma sodium measurement (moles/volume) 140 mmol/L 135-145 Serum or plasma potassium measurement (moles/volume) 3.5 mmol/L 3.6-5.0 Serum or plasma chloride measurement (moles/volume) 107 mmol/L 98-107 Carbon dioxide 23 mmol/L 21-32 Serum or plasma anion gap determination (moles/volume) 10 mmol/L 5-14 Serum or plasma urea nitrogen measurement (mass/volume ) 11 mg/dL 7-18 Serum or plasma creatinine measurement (mass/volume) 0.81 mg/dL 0.60-1.30 Serum or plasma urea nitrogen/creatinine mass ratio 14 NRG Serum or plasma creatinine measurement w ith calculation of estimated glomerular filtration rate > NRG Serum or plasma glucose measurement (mass/volume) 87 mg/dL 70-105 Serum or plasma calcium measurement (mass/volume) 9.3 mg/dL 8.5-10.1 Comprehensive Metabolic Panel - 01/24/19 22:11 Albumin 4.4 g/dL 3.6-5.1 ALP 60 U/L 35-130 ALT 15 U/L 6-45 Anion Gap 13 6-14 AST 17 U/L 2-40 BUN 8 mg/dL 5-25 Calcium 9.6 mg/dL 8.3-10.4 Chloride 108 mmol/L 95-114 CO2 21 mEq/L 22-33 Creat 0.82 mg/dL 0.50-1.50 eGFR 88 mL/min/1.73m2 >59 Globulin 2.8 g/dL 2.3-3.5 Glucose 92 mg/dL 70-110 Osmo 285 280-295 Potassium 3.1 mmol/L 3.5-5.3 Sodium 139 mmol/L 134-148 TBil 0.5 mg/dL 0.2-1.2 TP 7.2 g/dL 6.0-8.3 Influenza virus A and B antigen detectio n - 01/04/20 20:14 FLU RESULT NEGATIVE FOR INFLUENZA A AND B ANTIGENS BY IA NRG Encounters ACCT No. Visit Date/Time Discharge Status Pt. Type Provider Facility Loc./Unit Complaint [id number] 12/26/2019 14:00:00 12/26/2019 23:59: 59 CLS Outpatient RAJAT LAC[facility] [id number] 01/04/2020 18:15:00 020 21:06:00 DIS Emergency WESTON CHOWDHURY [facility] RIB PAIN [id number] 04/23/2019 19:30:00 019 20:30:00 DIS Emergency ARACELI CUADRA [facility] BITE ON HIP [id number] 04/02/2017 01:52:00 017 04:08:00 DIS Emergency ERASMO BROWN MD [facility] BLOOD IN URINE [id number] 03/03/2017 01:49:00 017 05:25:00 DIS Emergency ERASMO BROWN MD [facility] POSS ALLERGIC R XN [id number] 02/20/2017 05:58:00 017 06:45:00 DIS Emergency SHERON BROWN MDSHUA T [facility] LEFT ANKLE FO OT INJURY [id number] 01/24/2019 22:06:00 01/24/2019 22:59: 00 DIS Outpatient Komal Davila [id number] 01/24/2019 22:53:15 Document Registration
--- OUTSIDE RECORDS SUMMARY | 2020-01-06 17:39 | XMS REPORT ---
Author Author Mary PANCHAL Organization [facility] Address [address] [place] [address] Care Team Providers Care Jewel Oliving Machine Operator Name Role Phone JAMES PANCHAL Unavailable PROBLEMS Unknown Problems ALLERGIES No Information ENCOUNTERS Encounter Location Date Diagnosis [facility] [address] [facility] [id number] [address] [place] [phone] Apr, [facility] [address] [facility] [id number] [address] [place] [phone] Apr, Encounter for test , result unknown Z32.00 IMMUNIZATIONS No Known Immunizations SOCIAL HISTORY Never Assessed REASON FOR VISIT test (walk-in)/Blood PLAN OF CARE VITAL SIGNS MEDICATIONS Unknown Medications RESULTS Name Result Date Reference Range TEST, SERUM (QUAL) 2017-05-21 hCG,Beta Subunit,Qual,Serum Negative Nega tive <6 PROCEDURES Procedure Date Ordered Result Body Site CHORIONIC GONADOTROPIN ASSAY May 21, 2017 VENIPUNCT, ROUTINE* May 21, 2017 INSTRUCTIONS MEDICATIONS ADMINISTERED No Known Medications
--- OUTSIDE RECORDS SUMMARY | 2020-01-06 17:39 | XMS REPORT ---
Author Author Mary MAYERS Organization [facility] Address [address] [place] [address] Care Team Providers Care Novelty Chain Maker Name Role Phone SUSSY MAYERS Unavailable PROBLEMS Type Condition ICD9-CM Code [id number] Code Onset Dates Condition S tatus SNOMED Code Problem TOSHA (generalized anxiety disorder) F41.1 Active 78463912 Problem Unspecified mood [affective] disorder F39 Active 85300212 ALLERGIES No Information ENCOUNTERS Encounter Location Date Diagnosis [facility] [address] [facility] [id number] [address] [place] [phone] Jun, [facility] [address] [facility] [id number] [address] [place] [phone] Jun, [facility] [address] [facility] [id number] [address] [place] [phone] May, TOSHA (generalized anxiety dis order) F41.1 and Unspecified mood [affective] disorder F39 [facility] [address] [facility] [id number] [address] [place] [phone] May, Unspecified mood [affective] disorder F39 and Anxiety state, unspecified F41.1 [facility] [address] [facility] [id number] [address] [place] [phone] Apr, [facility] [address] [facility] [id number] [address] [place] [phone] Apr, Encounter for test , result unknown Z32.00 IMMUNIZATIONS No Known Immunizations SOCIAL HISTORY Never Assessed REASON FOR VISIT intake PLAN OF CARE VITAL SIGNS MEDICATIONS Unknown Medications RESULTS No Results PROCEDURES Procedure Date Ordered Result Body Site Psych diagnostic evaluation, established patient Jun 02, 2018 INSTRUCTIONS MEDICATIONS ADMINISTERED No Known Medications MEDICAL (GENERAL) HISTORY Type Description Date Medical History bi-polar Medical History Depression/anxiety Surgical History Tonsilectomy 2017
--- OUTSIDE RECORDS SUMMARY | 2020-01-06 17:39 | XMS REPORT ---
Author Author Mary REED PEREZ Organization [facility] Address [address] [place] [address] Care Team Providers Care Crop Roller Name Role Phone DEREK, PEREZ Unavailable PROBLEMS Type Condition ICD9-CM Code BAN20-DV Code Onset Dates Condition S tatus SNOMED Code Problem TOSHA (generalized anxiety disorder) F41.1 Active 60291869 Problem Unspecified mood [affective] disorder F39 Active 27243932 ALLERGIES Substance Reaction Event Type Date Status Penicillin V Potassium anaphylaxis Drug Allergy May, Activ e ENCOUNTERS Encounter Location Date Diagnosis [facility] [address] [place] [id number] [address] [place] [phone] May, TOSHA (generalized anxiety dis order) F41.1 and Unspecified mood [affective] disorder F39 [facility] [address] [place] [id number] [address] [place] [phone] May, Unspecified mood [affective] disorder F39 and Anxiety state, unspecified F41.1 [facility] [address] [place] [id number] [address] [place] [phone] Apr, [facility] [address] [place] [id number] [place] [phone] Apr, Encounter for test , result unknown Z32.00 IMMUNIZATIONS No Known Immunizations SOCIAL HISTORY Never Assessed REASON FOR VISIT intake Lesvia PLAN OF CARE Activity Details Follow Up 3 Weeks Reason: f/u VITAL SIGNS Height 65 in 2018-06-21 Weight 167 lbs 2018-06-21 Heart Rate 84 bpm 2018-06-21 Respiratory Rate 20 2018-06-21 BMI 27.79 kg/m2 2018-06-21 Blood pressure systolic 116 mmHg 2018-06-21 Blood pressure diastolic 62 mmHg 2018-06-21 MEDICATIONS Medication Instructions Dosage Frequency Start Date End Date Duration S tatus Flintstones Complete Act roger Zoloft 50 mg Orally Once a day 1 tablet 24h May, 30 day(s) Active RESULTS No Results PROCEDURES No Known procedures INSTRUCTIONS MEDICATIONS ADMINISTERED No Known Medications MEDICAL (GENERAL) HISTORY Type Description Date Medical History bi-polar Medical History Depression/anxiety Surgical History Tonsilectomy 2017
== END 2020-01-04 21:06 | disposition home or self-care (01) ==
LOC: EDUNIT# 18:14 → ER 18:15
DX: S29.012A Strain of muscle and tendon of back wall of thorax, initial encounter (principal); M94.0 Chondrocostal junction syndrome [Tietze]; F17.210 Nicotine dependence, cigarettes, uncomplicated; F17.290 Nicotine dependence, other tobacco product, uncomplicated; Z88.0 Allergy status to penicillin; Z88.1 Allergy status to other antibiotic agents; Z79.52 Long term (current) use of systemic steroids; X58.XXXA Exposure to other specified factors, initial encounter
CPT/HCPCS: 87804

== ENCOUNTER → 2020-08-06 | Outpatient (CLI) | payer SELFPAY ==
[~2020-08-06] MED LIST changes: +CYCL10TA9 PO; +GADOBUTROL 7.5 MMOL/7.5 ML (GADAVIST) VIAL IV ONE
--- NOTE | 2020-08-06 09:15 | Diagnostic Imaging Report ---
CLINICAL INDICATION: Evaluate for multiple sclerosis. 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 EXAM: MRI of the brain performed without and with 5 cc of Gadavist IV contrast. Sequences include axial DWI, ADC map, coronal gradient echo, axial T2, axial FLAIR, axial T1, coronal T1 fat-sat thin orbits, axial T1 post IV contrast, coronal T1 fat-sat post IV contrast, and sagittal T1 post IV contrast. COMPARISON: None. FINDINGS: There is no evidence of acute cerebral infarct, intracranial hemorrhage, or gross mass effect. The brain parenchymal volume appears appropriate for patient's age. There are several focal areas of increased T2 signal involving the subcortical white matter regions of both frontal lobes bilaterally. There is also a focal area of increased T2 signal involving the subcortical left parietal lobe. The largest one measures 3 mm in the right frontal lobe anterior subinsular region. There are no T2 signal regions involving the corpus callosum or periventricular regions. There is normal rogers-white matter distinction. There is no significant midline shift or herniation. There is no evidence of hydrocephalus. The basal cisterns are unremarkable. The skull, extracranial soft tissue, and orbits are unremarkable. There are large amounts of fluid and peripheral mucosal thickening involving the left maxillary sinus. There are large amounts of mucosal thickening and fluid involving the left side of the frontal sinus and a moderate amount of fluid and consolidation involving the left ethmoid sinus region. There is minimal mucosal thickening involving the right maxillary sinus. The temporal bones show no significant abnormality. IMPRESSION: 1. There is severe paranasal sinusitis involving the left frontal sinus, left ethmoid sinus, and left maxillary sinus in an ostiomeatal unit obstruction pattern. There is minimal right maxillary sinus mucosal thickening. There is no bony erosive or destructive process seen. This may possibly contribute to the patient's symptoms but clinical correlation would better evaluate. 2. Otherwise, there is no evidence of an acute intracranial process. There is no abnormal IV contrast enhancement. 3. There are several nonspecific focal, punctate areas of increased T2 signal involving the white matter of both frontal lobes and a single focal area involving the left parietal lobe. None of these areas involve the corpus callosum or periventricular regions. These findings may be seen in patients with chronic migraine headaches. Sequelae from a prior remote infectious or inflammatory process may be considered. These focal areas do not have the typical appearance of a demyelinating process but correlation with lesions and patient's symptoms over time may help better evaluate. Dictated by: Dictated on workstation # [id number]
== END ==
LOC: RAD 07:38
PROVIDERS: ATTEND Nurse Practitioner Family
DX: H57.12 Ocular pain, left eye (principal); J32.2 Chronic ethmoidal sinusitis; J01.00 Acute maxillary sinusitis, unspecified; J01.10 Acute frontal sinusitis, unspecified; R29.898 Other symptoms and signs involving the musculoskeletal system
CPT/HCPCS: 70553

== ENCOUNTER 2020-10-08 09:56 | Emergency (ER) | payer SELFPAY ==
[~2020-10-08] VITALS: Ht 162 cm; Wt 54.0 kg
[~2020-10-08 09:56] MED LIST changes: -GADOBUTROL 7.5 MMOL/7.5 ML (GADAVIST) VIAL IV ONE
[2020-10-08 10:32] VITALS: BP_SYST 102; BP_SYST 104; BP_SYST 108; BP_DIAS 68; BP_DIAS 69; BP_DIAS 76
[2020-10-08 10:57] LABS: BASOPHILS % (AUTO) 1 % (0-10); EOSINOPHILS # (AUTO) 0.1 10^3/uL (0.0-0.3); EOSINOPHILS % (AUTO) 1 % (0-10); HEMATOCRIT 37 % (35-52); HEMOGLOBIN 12.5 g/dL (11.5-16.0); LYMPHOCYTES # (AUTO) 2.8 10^3/uL (1.0-4.0); LYMPHOCYTES % (AUTO) 36 % (12-44); MEAN CORPUSCULAR HEMOGLOBIN 31 pg (25-34); MEAN CORPUSCULAR HGB CONC 34 g/dL (32-36); MEAN CORPUSCULAR VOLUME 93 fL (80-99); MEAN PLATELET VOLUME 10.4 fL (9.0-12.2); MONOCYTES # (AUTO) 0.5 10^3/uL (0.0-1.0); MONOCYTES % (AUTO) 6 % (0-12); NEUTROPHILS # (AUTO) 4.2 10^3/uL (1.8-7.8); NEUTROPHILS % (AUTO) 56 % (42-75); PLATELET COUNT 203 10^3/uL (130-400); WHITE BLOOD COUNT 7.6 10^3/uL (4.3-11.0)
--- NOTE | 2020-10-08 11:09 | ED General ---
General Chief Complaint: Dizziness/Syncope Stated Complaint: DIFFICULTY REMEMBERING, PASSED OUT Nursing Triage Note: Pt reports syncopal episode, states she remembers sitting on toilet and then was found by sister after "passing out". Pt reports previous similar episodes of dizziness after standing. Pt thinks she hit her head and reports anterior headache. Nursing Sepsis Screen: No Definite Risk Source of Information: Patient Exam Limitations: No Limitations History of Present Illness Date Seen by Provider: Oct 08, 2020 Time Seen by Provider: 11:06 Initial Comments To ER with reports of passing out while she was on the toilet. She had been feeling fine and woke up this morning went to the toilet and passed out while on the toilet. She fell to the floor striking her head. Her sister found her on the floor. At this time she feels tired and has a headache. She states she has a lot of medical problems. She states "I am on a lot of medicines for bipolar and anxiety" Timing/Duration: 1-2 Days Severity: Moderate Associated Systoms: Headaches Allergies and Home Medications Allergies Coded Allergies: amoxicillin (Verified Allergy, Intermediate, RASH, 03/03/17) Rash and Dyspnea clavulanic acid (Verified Allergy, Intermediate, RASH, 03/03/17) Rash and Dyspnea Home Medications Amoxicillin/Potassium Clav 1 Each Tablet, 1 EACH PO BID, (Reported) Cefuroxime Axetil 250 Mg Tablet, 250 MG PO BID Prescribed by: YESENIA PERAZA on 10/08/20 121 Ciprofloxacin HCl 500 Mg Tablet, 500 MG PO BID Prescribed by: ERASMO MONROE on 04/02/17 040 Cyclobenzaprine HCl 10 Mg Tablet, 10 MG PO Q8H PRN for SPASMS Prescribed by: WESTON CHOWDHURY on 01/04/202048 Hyoscyamine Sulfate 0.125 Mg Tab.subl, 0.125 MG SL Q4H PRN for CRAMPS Prescribed by: ERASMO MONROE on 04/02/17 040 Phenazopyridine HCl 200 Mg Tablet, 1 TAB PO TID PRN for PAIN-MILD TO MODERATE Prescribed by: ERASMO MONROE on 04/02/17 0401 Prednisone 20 Mg Tab, 20 MG PO DAILY Prescribed by: ERASMO MONROE on 03/03/17 0501 Sulfamethoxazole/Trimethoprim 1 Each Tablet, 1 EACH PO BID Prescribed by: ARACELI VOGEL on 04/23/192019 Patient Home Medication List Home Medication List Reviewed: Yes Review of Systems Review of Systems Constitutional: see HPI; No chills, No fever EENTM: see HPI Respiratory: no symptoms reported Cardiovascular: no symptoms reported Genitourinary: no symptoms reported Musculoskeletal: no symptoms reported Skin: no symptoms reported Psychiatric/Neurological: No Symptoms Reported Hematologic/Lymphatic: No Symptoms Reported Past Ppiixca-Khmggi-Nnkxgx Hx Patient Social History Alcohol Use: Denies Use Recreational Drug Use: No Type Used: Electronic/Vapor 2nd Hand Smoke Exposure: No Recent Foreign Travel: No Contact w/Someone Who Travel: No Recent Infectious Disease Expo: No Recent Hopitalizations: No Immunizations Up To Date Tetanus Booster (TDap): More than 5yrs Seasonal Allergies Seasonal Allergies: No Past Medical History Surgeries: Yes Adenoidectomy, Tonsillectomy Respiratory: No Cardiac: No Neurological: No (had recent MRI for possible MS) Genitourinary: No Gastrointestinal: No Musculoskeletal: No Endocrine: No HEENT: No Cancer: No Psychosocial: Yes Bipolar, Depression Integumentary: No Blood Disorders: No Family Medical History No Pertinent Family Hx Physical Exam Vital Signs Vital Signs - First Documented 10/08/20 10:20 Temp 36.7 Pulse 72 Resp 18 B/P (MAP) 107/75 (86) Pulse Ox 99 O2 Delivery Room Air Capillary Refill : Less Than 3 Seconds Height, Weight, BMI Height: 5'4.00" Weight: 135lbs. oz. [id number]; 20.00 BMI Method:Stated General Appearance: No Apparent Distress, WD/WN Eyes: Bilateral Eye Normal Inspection, Bilateral Eye PERRL, Bilateral Eye EOMI HEENT: PERRL/EOMI, TMs Normal Neck: Full Range of Motion, Normal Inspection Respiratory: No Accessory Muscle Use Cardiovascular: Regular Rate, Rhythm, Normal Peripheral Pulses Gastrointestinal: Non Tender, Soft Extremity: Normal Capillary Refill, Normal Inspection Neurologic/Psychiatric: Alert, Oriented x3 Skin: Normal Color, Warm/Dry Progress/Results/Core Measures Suspected Sepsis Recent Fever Within 48 Hours: No Infection Criteria Present: None New/Unexplained Altered Menta: No Sepsis Screen: No Definite Risk SIRS Temperature: Pulse: 75 Respiratory Rate: 18 Laboratory Tests 10/08/20 10:50: White Blood Count 7.6 Blood Pressure 108 /76 Mean: 87 Laboratory Tests 10/08/20 10:50: Creatinine 0.84, Platelet Count 203, Total Bilirubin 1.1H Results/Orders Lab Results Laboratory Tests Test 10/08/20 10:50 10/08/20 11:23 10/08/20 11:40 Range/Units White Blood Count 7.6 4.3-11.0 10^3/uL Red Blood Count 3.99 3.80-5.11 10^6/uL Hemoglobin 12.5 11.5-16.0 g/dL Hematocrit 37 35-52 % Mean Corpuscular Volume 93 80-99 fL Mean Corpuscular Hemoglobin 31 25-34 pg Mean Corpuscular Hemoglobin Concent 34 32-36 g/dL Red Cell Distribution Width 11.7 10.0-14.5 % Platelet Count 203 130-400 10^3/uL Mean Platelet Volume 10.4 9.0-12.2 fL Immature Granulocyte % (Auto) 0 % Neutrophils (%) (Auto) 56 42-75 % Lymphocytes (%) (Auto) 36 12-44 % Monocytes (%) (Auto) 6 0-12 % Eosinophils (%) (Auto) 1 0-10 % Basophils (%) (Auto) 1 0-10 % Neutrophils # (Auto) 4.2 1.8-7.8 10^3/uL Lymphocytes # (Auto) 2.8 1.0-4.0 10^3/uL Monocytes # (Auto) 0.5 0.0-1.0 10^3/uL Eosinophils # (Auto) 0.1 0.0-0.3 10^3/uL Basophils # (Auto) 0.0 0.0-0.1 10^3/uL Immature Granulocyte # (Auto) 0.0 0.0-0.1 10^3/uL Sodium Level 140 135-145 MMOL/L Potassium Level 3.4 L 3.6-5.0 MMOL/L Chloride Level 106 98-107 MMOL/L Carbon Dioxide Level 25 21-32 MMOL/L Anion Gap 9 5-14 MMOL/L Blood Urea Nitrogen 9 7-18 MG/DL Creatinine 0.84 0.60-1.30 MG/DL Estimat Glomerular Filtration Rate > 60 BUN/Creatinine Ratio 11 Glucose Level 97 70-105 MG/DL Calcium Level 8.7 8.5-10.1 MG/DL Corrected Calcium 8.5 8.5-10.1 MG/DL Magnesium Level 1.7 1.6-2.4 MG/DL Total Bilirubin 1.1 H 0.1-1.0 MG/DL Aspartate Amino Transf (AST/SGOT) 12 5-34 U/L Alanine Aminotransferase (ALT/SGPT) 8 0-55 U/L Alkaline Phosphatase 49 40-136 U/L Total Protein 6.7 6.4-8.2 GM/DL Albumin 4.2 3.2-4.5 GM/DL Serum Test, Qualitative NEGATIVE NEGATIVE Urine Color YELLOW Urine Clarity CLOUDY Urine pH 6.0 5-9 Urine Specific Dunlap >=1.030 1.016-1.022 Urine Protein 1+ H NEGATIVE Urine Glucose (UA) NEGATIVE NEGATIVE Urine Ketones NEGATIVE NEGATIVE Urine Nitrite NEGATIVE NEGATIVE Urine Bilirubin NEGATIVE NEGATIVE Urine Urobilinogen 0.2 < = 1.0 MG/DL Urine Leukocyte Esterase TRACE H NEGATIVE Urine RBC (Auto) 1+ H NEGATIVE Urine RBC 2-5 H /HPF Urine WBC 10-25 H /HPF Urine Squamous Epithelial Cells 10-25 H /HPF Urine Crystals NONE /LPF Urine Bacteria LARGE H /HPF Urine Casts NONE /LPF Urine Mucus LARGE H /LPF Urine Culture Indicated YES Urine Opiates Screen NEGATIVE NEGATIVE Urine Oxycodone Screen NEGATIVE NEGATIVE Urine Methadone Screen NEGATIVE NEGATIVE Urine Propoxyphene Screen NEGATIVE NEGATIVE Urine Barbiturates Screen NEGATIVE NEGATIVE Ur Tricyclic Antidepressants Screen POSITIVE H NEGATIVE Urine Phencyclidine Screen NEGATIVE NEGATIVE Urine Amphetamines Screen NEGATIVE NEGATIVE Urine Methamphetamines Screen NEGATIVE NEGATIVE Urine Benzodiazepines Screen POSITIVE H NEGATIVE Urine Cocaine Screen NEGATIVE NEGATIVE Urine Cannabinoids Screen POSITIVE H NEGATIVE My Orders Orders - YESENIA PERAZA APRN Ct [facility] (10/08/20 11:03) Ketorolac Injection (Toradol Injection) (10/08/20 11:15) Ns Iv 1000 Ml (Sodium Chloride 0.9%) (10/08/20 11:15) Drug Screen Stat (Urine) (10/08/20 11:40) Ceftriaxone For Iv Use (Rocephin For I (10/08/20 12:00) Medications Given in ED Current Medications Medications Dose Ordered Sig/Marilou Route Start Time Stop Time Status Last Admin Dose Admin Ceftriaxone Sodium 1000 mg/ Sterile Water 10 ml @ 200 mls/hr ONCE ONCE IV 10/08/20 12:00 10/08/20 12:02 DC 10/08/20 12:23 200 MLS/HR Ketorolac Tromethamine 15 mg ONCE ONCE IVP 10/08/20 11:15 10/08/20 11:16 DC 10/08/20 11:32 15 MG Vital Signs/I&O 10/08/20 10/08/20 10:20 10:32 Temp 36.7 Pulse 72 61 70 75 Resp 18 B/P (MAP) 107/75 (86) 102/68 (79) 104/69 (81) 108/76 (87) Pulse Ox 99 O2 Delivery Room Air Capillary Refill : Less Than 3 Seconds Blood Pressure Mean: 87 Departure Impression Primary Impression: Syncope Additional Impressions: Benzodiazepine use UTI (urinary tract infection) Disposition: 01 HOME, SELF-CARE Condition: Stable Departure-Patient Inst. Decision time for Depature: 12:09 Referrals: [facility] (PCP) Primary Care Physician FERNIE VICTORIA APRN (Family) Primary Care Physician Patient Instructions: Fainting, Adult ED Add. Discharge Instructions: 1. Follow-up with your doctor next week 2. Return to ER for any concerns 3. Emergency department focuses on treating and ruling out life-threatening diseases. Whenever possible, a diagnosis is given. However, most patients are given an impression based on their history, physical exam, and workup during your brief time in the ER. Information about probable diagnosis and other educational material has been provided. Please take the time to read and understand this information. It is very important that you follow up with a physician as discussed during the visit today. Failure to adhere to your follow-up instructions may lead to severe disability, injury, or so please make sure to keep your appointments or obtain one as requested. All discharge instructions reviewed with patient and/or family. Voiced understanding. Scripts Cefuroxime Axetil (Cefuroxime) 250 Mg Tablet 250 MG PO BID, #10 TAB . Prov: YESENIA PERAZA APRN 10/08/20 Work/School Note: Work Release Form Date Seen in the Emergency Department: Oct 08, 2020 Return to Work: Oct 09, 2020 YESENIA PERAZA APRN Oct 08, 2020 11:08
[2020-10-08 11:10] LABS: ALBUMIN 4.2 GM/DL (3.2-4.5)
[2020-10-08 11:11] LABS: CHLORIDE 106 MMOL/L (98-107); POTASSIUM 3.4 MMOL/L (3.6-5.0); SODIUM 140 MMOL/L (135-145)
[2020-10-08 11:12] LABS: CALCIUM 8.7 MG/DL (8.5-10.1)
[2020-10-08 11:13] LABS: GLUCOSE 97 MG/DL (70-105); TOTAL PROTEIN 6.7 GM/DL (6.4-8.2)
[2020-10-08 11:14] LABS: CARBON DIOXIDE 25 MMOL/L (21-32)
[2020-10-08 11:15] LABS: BILIRUBIN,TOTAL 1.1 MG/DL (0.1-1.0)
[2020-10-08] MEDS ORDERED: NS IV 1000 ML 1,000 ML IV SCH (11:15)
[2020-10-08] MEDS ORDERED: KETOROLAC 30 MG/ML VIAL IVP ONE (11:15)
[2020-10-08 11:16] LABS: ALKALINE PHOSPHATASE 49 U/L (40-136)
[2020-10-08 11:17] LABS: CREATININE SERUM 0.84 MG/DL (0.60-1.30); GFR ESTIMATED > 60
[2020-10-08 11:18] LABS: BUN/CREATININE RATIO 11
[2020-10-08 11:19] LABS: ALANINE AMINOTRANSFERASE 8 U/L (0-55); MAGNESIUM 1.7 MG/DL (1.6-2.4)
[2020-10-08 11:30] LABS: BILIRUBIN,URINE NEGATIVE (NEGATIVE); CLARITY,URINE CLOUDY; COLOR,URINE YELLOW; GLUCOSE, URINE (UA) NEGATIVE (NEGATIVE); KETONES,URINE NEGATIVE (NEGATIVE); LEUKOCYTE ESTERASE ,URINE TRACE (NEGATIVE); NITRITE,URINE NEGATIVE (NEGATIVE); PROTEIN,URINE 1+ (NEGATIVE)
--- NOTE | 2020-10-08 11:43 | Diagnostic Imaging Report ---
PROCEDURE: CT head without contrast. TECHNIQUE: Multiple contiguous axial images were obtained through the brain without the use of intravenous contrast. Auto Exposure Controls were utilized during the CT exam to meet ALARA standards for radiation dose reduction. INDICATION: Headaches, bilateral leg numbness. There is no mass, shift of the midline or hemorrhage to suggest an acute intracranial abnormality. The ventricles are not abnormally dilated and similar in size to the prior MRI brain exam of 08/06/2020. The bone windows show no evidence for fracture or for destructive lesion. The orbits are symmetrical and within normal limits. The previous exam did show severe left maxillary and left frontal sinusitis. On this exam both the left maxillary sinus and the left frontal sinus do seem much better aerated. The sinuses are otherwise generally clear where visualized. IMPRESSION: 1. There is no evidence for an acute intracranial abnormality. 2. The left maxillary and left frontal sinusitis seen in the prior study has essentially resolved. Dictated by: Dictated on workstation # [id number]
[2020-10-08 11:44] LABS: BACTERIA,URINE LARGE /HPF
[2020-10-08] MEDS ORDERED: cefTRIAXone FOR IV USE 1,000 MG in WATER (STERILE) FOR INJECTION 10 ML IV ONE (12:00)
[2020-10-08 12:06] LABS: BENZODIAZEPINES SCREEN URINE POSITIVE (NEGATIVE); COCAINE SCREEN URINE NEGATIVE (NEGATIVE)
[2020-10-08 12:07] LABS: AMPHETAMINE SCREEN, URINE NEGATIVE (NEGATIVE); BARBITURATE SCREEN URINE NEGATIVE (NEGATIVE); CANNABINOID SCREEN, URINE POSITIVE (NEGATIVE); METHADONE STAT NEGATIVE (NEGATIVE); METHAMPHETAMINE SCREEN URINE S NEGATIVE (NEGATIVE); OPIATE SCREEN URINE NEGATIVE (NEGATIVE); OXYCODONE STAT NEGATIVE (NEGATIVE); PROPOXYPHENE STAT NEGATIVE (NEGATIVE); TRICYCLIC ANTIDEPRESSANTS SCRE POSITIVE (NEGATIVE)
[2020-10-08] MEDS ORDERED: CEFU250T80 PO ×2 (12:11→12:28)
[2020-10-08 12:30] VITALS: BP 108/76
== END 2020-10-08 12:31 | disposition home or self-care (01) ==
LOC: EDUNIT# 09:56 → ER 09:58
DX: R55 Syncope and collapse (principal); N39.0 Urinary tract infection, site not specified; F13.90 Sedative, hypnotic, or anxiolytic use, unspecified, uncomplicated; Z88.1 Allergy status to other antibiotic agents; Z79.52 Long term (current) use of systemic steroids
CPT/HCPCS: 36415; 70450; 80053; 80306; 81000; 83735; 84703; 85025; 87088; 93005

== ENCOUNTER → 2020-12-24 | Outpatient (CLI) | payer BC, MEDICAID ==
[~2020-12-24] MED LIST changes: +CEFU250T80 PO; +GADOBUTROL 7.5 MMOL/7.5 ML (GADAVIST) VIAL IV ONE
--- NOTE | 2020-12-24 09:14 | Diagnostic Imaging Report ---
PROCEDURE: MR imaging cervical spine with and without contrast. TECHNIQUE: Multiplanar and multisequence MRI of the cervical spine was performed with and without contrast. INDICATION: Neuropathy in the upper extremities. No known injury. COMPARISON: None. FINDINGS: No acute fracture or dislocation is seen in the cervical spine. There is mild straightening of the cervical spine. The craniocervical junction is intact. No focal osseous lesions. Vertebral body heights are well-maintained. The intrinsic signal within the cervical spinal cord is normal. No evidence of cord expansion. No epidural collections. No abnormal enhancement is seen in the cervical spinal cord. Mild degenerative changes are present in the cervical spine with posterior disc bulges at the C3-C4 and C6-C7 levels. No significant spinal canal or foraminal stenosis is seen in the cervical spine. The soft tissues of the neck demonstrate mild cervical lymphadenopathy. IMPRESSION: 1. No acute fracture or dislocation in the cervical spine. No abnormal enhancement. 2. No focal signal abnormalities are visualized in the cervical spinal cord. 3. No significant degenerative changes in the cervical spine. No spinal canal or foraminal stenosis. Dictated by: Dictated on workstation # [id number]
== END ==
LOC: RAD 08:00
PROVIDERS: ATTEND Psychiatry & Neurology Neurology
DX: G60.3 Idiopathic progressive neuropathy (principal); G56.03 Carpal tunnel syndrome, bilateral upper limbs
CPT/HCPCS: 72156